=== PATIENT | female | born 1965 | race Caucasian/White ===

== ENCOUNTER 2021-11-08 08:00 | Outpatient (CLI) | payer BC ==
[~2021-11-08] VITALS: Ht 172.7 cm; Wt 93.4 kg
[2021-11-08 15:00] VITALS: BP_SYST 117
== END 2021-11-08 14:50 | disposition home or self-care (01) ==
LOC: SLB 08:00 → UNDODISIN 11-11 07:51 → UNDODISOB 11-11 07:53
PROVIDERS: ATTEND Obstetrics & Gynecology
DX: Z01.818 Encounter for other preprocedural examination (principal); D25.1 Intramural leiomyoma of uterus; I10 Essential (primary) hypertension; N83.201 Unspecified ovarian cyst, right side
CPT/HCPCS: 36415 ×2; 71045; 87426; 86886; 86900; 86901; U0003; G0378

== ENCOUNTER 2021-11-22 08:58 | Inpatient (IN) | payer BC ==
[2021-11-21 11:50] LABS: BASOPHILS % (AUTO) 0.7 % (0.0-2.0); EOSINOPHILS % (AUTO) 1.1 % (0.0-4.0); HEMATOCRIT 39.2 % (36-48); LYMPHOCYTES # (AUTO) 1.9 K/uL (1.0-5.5); LYMPHOCYTES % (AUTO) 46.8 % (20.5-51.5); MEAN CORPUSCULAR VOLUME 91 fL (79.0-98.0); MONOCYTES # (AUTO) 0.4 K/uL (0.0-1.0); MONOCYTES % (AUTO) 10.6 % (1.7-9.3); NEUTROPHILS # (AUTO) 1.7 K/uL (1.8-7.7); NEUTROPHILS % (AUTO) 40.8 % (40.0-70.0); PLATELET COUNT (AUTO) 234 K/uL (130-430); RED BLOOD CELL COUNT(AUTO) 4.31 MIL/uL (4.2-6.2); RED CELL DISTRIBUTION WIDTH 12.9 % (9.0-15.0); WHITE BLOOD COUNT (AUTO) 4.1 K/uL (4.8-10.8)
[2021-11-21 11:56] LABS: ALBUMIN 3.5 g/dL (3.4-4.8); CALCIUM 8.9 mg/dL (8.4-11.0); CREATININE 0.71 mg/dL (0.55-1.30); POTASSIUM 4.4 mmol/L (3.5-5.1); TOTAL BILIRUBIN 0.2 mg/dL (0.0-1.0)
[~2021-11-22] VITALS: Ht 172.7 cm; Wt 91.6 kg
[2021-11-22] MEDS ORDERED: BUPIVACAINE LIPOSOME/PF 266 MG/20 ML VIAL INFIL ONE (13:39)
[2021-11-22] MEDS ORDERED: ONDANSETRON HCL 4 MG/2 ML VIAL IVP PRN ×2 (13:45→15:30)
[2021-11-22] MEDS ORDERED: SIMETHICONE 80 MG TAB.CHEW PO PRN (13:45)
[2021-11-22] MEDS ORDERED: HYDROmorphone 2 MG/ML VIAL IVP PRN (13:45)
[2021-11-22] MEDS ORDERED: OXYCODONE/ACETAMINOPHEN 5-325 TABLET PO PRN (13:45)
[2021-11-22] MEDS ORDERED: IBUPROFEN 800 MG TABLET PO PRN (13:45)
[2021-11-22] MEDS ORDERED: KETOROLAC TROMETHAMINE 30 MG VIAL IVP PRN (13:45)
[2021-11-22] MEDS ORDERED: ePHEDrine sulfate 50 MG/ML VIAL IVP ONE (13:50)
[2021-11-22] MEDS ORDERED: PROPOFOL 200MG/ 20ML VIAL (DIPRIVAN) IV ONE (13:50)
[2021-11-22] MEDS ORDERED: HYDROmorphone 2 MG/ML VIAL IVP ONE (13:50)
[2021-11-22] MEDS ORDERED: CLINDAMYCIN PHOSPHATE 900 mg/50mL D5W IV ONE (13:50)
[2021-11-22] MEDS ORDERED: LR 1,000 ML IV.SOLN IV ONE (13:50)
[2021-11-22] MEDS ORDERED: fentaNYL CITRATE/PF 100 MCG/2 ML AMP IVP ONE (13:50)
[2021-11-22] MEDS ORDERED: ROCURONIUM BROMIDE 10 MG/ML (ZEMURON) IV ONE (13:50)
[2021-11-22] MEDS ORDERED: KETOROLAC TROMETHAMINE 30 MG VIAL IVP ONE (13:50)
[2021-11-22] MEDS ORDERED: MIDAZOLAM HCL 5 MG/5 ML VIAL IVP ONE (13:50)
[2021-11-22] MEDS ORDERED: SUCCINYLCHOLINE CHLORIDE 20 MG/ML(QUELICIN) IVP ONE (13:50)
[2021-11-22] MEDS ORDERED: METOCLOPRAMIDE HCL 10 MG/2 ML VIAL IVP ONE (13:50)
[2021-11-22] MEDS ORDERED: DEXAMETHASONE SOD PHOSPHATE 4 MG/ML VIAL IVP ONE (13:50)
[2021-11-22] MEDS ORDERED: SEVOFLURANE 15 MIN GAS INH ONE (13:50)
[2021-11-22] MEDS ORDERED: SUGAMMADEX SODIUM 200 MG/2 ML VIAL IV ONE (13:50)
[2021-11-22] MEDS ORDERED: ONDANSETRON HCL 4 MG/2 ML VIAL IVP ONE (13:50)
[2021-11-22] MEDS ORDERED: NS IRRIG SOLN 1000 ML IR ONE (13:50)
[2021-11-22] MEDS ORDERED: METOCLOPRAMIDE HCL 10 MG/2 ML VIAL IVP PRN (15:30)
[2021-11-22] MEDS ORDERED: MEPERIDINE HCL/PF 25 MG/ML DISP.SYRIN IVP PRN (15:30)
[2021-11-22] MEDS ORDERED: HYDROmorphone 1 MG/ML INJ. CARTRIDGE IVP PRN ×2 (15:30)
[2021-11-22] MEDS ORDERED: NALOXONE HCL 0.4 MG/ML AMP (NARCAN) IVP PRN (15:30)
[2021-11-22] MEDS: LR 1,000 ML IV SCH ×2 (16:30→22:09)
--- NOTE | 2021-11-22 16:30 | NUR ---
Admit notes Received patient from recovery alert and oriented, s/p supra cervical hysterectomy, bilateral salphingo oopherectomy. abdominal incision is dry and intact with abdominal binder. goins cath draining well. IVF infusing well. Pain is control at this time. Oriented to call light use, pain management. safety precaution observed. Enc to call for help as needed. Will monitor.
[2021-11-22 16:39] VITALS: BP_SYST 117
[2021-11-22] MEDS ORDERED: FAMO20TA8 PO (17:38)
[2021-11-22] MEDS ORDERED: ATRMDI INH (17:38)
[2021-11-22] MEDS ORDERED: LISI10TA29 PO (17:38)
[2021-11-22] MEDS ORDERED: ALBU8.5H8 INH (17:38)
[2021-11-22] MEDS ORDERED: LIP20 PO (17:38)
[2021-11-22] MEDS ORDERED: BECL10.62 INH (17:38)
--- NOTE | 2021-11-22 19:00 | NUR ---
received pt from day nurse, report giving at bedside. pt alert, awake and stable at this time. pt has no c/o pain or distress noted. skin warm to touch and clean and dry. pt is s/p surgery with dressing to abd. dressing is dry and intact. 20g to right hand patent and intact with ivf running. vitals taken and within normal limits. resp even while on RA. pt has feloy in place with clear yellow urine and scds to promote good blood flow. call light in reach and place bed to lowest position.
[2021-11-22] MEDS ORDERED: TEMAZEPAM 15 MG CAPSULE PO PRN (21:00)
[2021-11-22 21:17] VITALS: BP_SYST 108
[2021-11-22] MEDS: DOCUSATE SODIUM 100 MG CAPSULE PO SCH (22:10)
--- NOTE | 2021-11-23 06:07 | NUR ---
javad martinez/john pt has no c/o pain at this time
[2021-11-23] MEDS: LR 1,000 ML IV SCH ×3 (07:00→21:29)
[2021-11-23 08:25] LABS: BASOPHILS % (AUTO) 0.1 % (0.0-2.0); EOSINOPHILS % (AUTO) 0.4 % (0.0-4.0); HEMATOCRIT 34.2 % (36-48); HEMOGLOBIN 11.8 g/dL (12.0-16.0); LYMPHOCYTES # (AUTO) 1.6 K/uL (1.0-5.5); LYMPHOCYTES % (AUTO) 28.2 % (20.5-51.5); MEAN CORPUSCULAR HEMOGLOBIN 31 pg (27-31); MEAN CORPUSCULAR HGB CONC 35 % (32-36); MEAN CORPUSCULAR VOLUME 90 fL (79.0-98.0); MONOCYTES # (AUTO) 0.5 K/uL (0.0-1.0); MONOCYTES % (AUTO) 8.6 % (1.7-9.3); NEUTROPHILS # (AUTO) 3.5 K/uL (1.8-7.7); NEUTROPHILS % (AUTO) 62.7 % (40.0-70.0); PLATELET COUNT (AUTO) 214 K/uL (130-430); RED BLOOD CELL COUNT(AUTO) 3.78 MIL/uL (4.2-6.2); RED CELL DISTRIBUTION WIDTH 12.9 % (9.0-15.0); WHITE BLOOD COUNT (AUTO) 5.7 K/uL (4.8-10.8)
[2021-11-23] MEDS: DOCUSATE SODIUM 100 MG CAPSULE PO SCH ×2 (10:10→21:21)
[2021-11-23 12:00] VITALS: BP_SYST 115
[2021-11-23 16:15] VITALS: BP_SYST 112
[2021-11-23 20:00] VITALS: BP_SYST 111
[2021-11-23] MEDS: OXYCODONE/ACETAMINOPHEN 5-325 TABLET PO PRN (21:03)
[2021-11-24] VITALS: BP_SYST 100
[2021-11-24] MEDS: OXYCODONE/ACETAMINOPHEN 5-325 TABLET PO PRN (03:35)
[2021-11-24] MEDS: LR 1,000 ML IV SCH ×2 (05:34→13:45)
[2021-11-24] MEDS: DOCUSATE SODIUM 100 MG CAPSULE PO SCH (10:20)
[2021-11-24 11:45] VITALS: BP_SYST 115
--- NOTE | 2021-11-24 15:32 | NUR ---
Dispo code 06 Addendum: 11/24/21 at 1532 by Umer Chen RN Correction: Dispo code 01, discharged to home.
--- NOTE | 2021-11-24 15:33 | NUR ---
Correction: Dispo code 01, discharged to home.
[2021-11-24 15:43] VITALS: BP_SYST 116
[2021-11-24 17:59] VITALS: BP_SYST 122
== END 2021-11-24 18:35 | disposition home or self-care (01) | DRG 513 ==
LOC: SDS 08:58 → SMU 09:04 → SDS 16:33 → SMU 16:33
PROVIDERS: ADMIT Obstetrics & Gynecology; ATTEND Obstetrics & Gynecology
PROC: 0UT20ZZ Resection of Bilateral Ovaries, Open Approach (ICD-10-PCS; 2021-11-22)
PROC: 0UT70ZZ Resection of Bilateral Fallopian Tubes, Open Approach (ICD-10-PCS; 2021-11-22)
PROC: 0UT90ZL Resection of Uterus, Supracervical, Open Approach (ICD-10-PCS; principal; 2021-11-22 13:56)
DX: N83.201 Unspecified ovarian cyst, right side (principal); D25.9 Leiomyoma of uterus, unspecified; Z20.822 Contact with and (suspected) exposure to COVID-19; Z88.0 Allergy status to penicillin
CPT/HCPCS: 36415; 71045; 80053; 85025; 86886; 86900; 86901; 87081; 88307; 88341; 88342; 93005; C9290; J0330; J1100; J1170; J1885; J2250; J2405; J2704; J2765; J3010; J3490; J7120; U0003